=== PATIENT | female | born 1965 | race Caucasian/White ===

== ENCOUNTER 2016-09-20 08:02 | Outpatient (CLI) | payer OTHER ==
--- NOTE | 2016-09-20 09:10 | DIAGNOSTIC IMAGING REPORT ---
PROCEDURE: XR CERVICAL SPINE 4 OR 5 VIEW INDICATION: C4-5 FUSION CONFIRMATION TECHNIQUE: Five views. COMPARISON: Cervical spine x-ray 03/20/2016 FINDINGS: C4-5 anterior surgical fusion with plate, screws and disc machine feeder raw stock. Stable 2 mm C4-5 anterolisthesis. No evidence of instability on flexion and extension. Moderate C5-6 and C6-7 disc space narrowing and spur formation. Odontoid, lateral masses of C1 and prevertebral soft tissues are normal. IMPRESSION: 1. Stable C4-5 anterior surgical fusion without evidence of instability.
--- NOTE | 2016-09-20 09:10 | DIAGNOSTIC IMAGING REPORT ---
PROCEDURE: XR CERVICAL SPINE 4 OR 5 VIEW INDICATION: C4-5 FUSION CONFIRMATION TECHNIQUE: Five views. COMPARISON: Cervical spine x-ray 03/20/2016 FINDINGS: C4-5 anterior surgical fusion with plate, screws and disc branch lending manager. Stable 2 mm C4-5 anterolisthesis. No evidence of instability on flexion and extension. Moderate C5-6 and C6-7 disc space narrowing and spur formation. Odontoid, lateral masses of C1 and prevertebral soft tissues are normal. IMPRESSION: 1. Stable C4-5 anterior surgical fusion without evidence of instability.
== END 2016-09-20 23:00 ==
LOC: XR SRH 08:02
DX: M54.2 Cervicalgia (principal); Z98.1 Arthrodesis status